=== PATIENT | male | born 1970 | race Caucasian/White ===

== ENCOUNTER 2024-09-22 08:21 | Day surgery (SDC) | payer MEDICARE, OTHER, MEDICAID, SELFPAY ==
[2024-09-22] VITALS (10 sets, daily range): BP systolic 120–151; BP diastolic 80–95; BMI 21.8
--- NOTE | 2024-09-22 08:11 | W.ICD.CONTRA ---
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
-
History of [place]?: No
LV Function
Left ventricular function study result?: Ejection Fraction >/= 40%
ACEI/ARB/ARNI
Patient already on ACEI/ARB/ARNI: No
Beta-Dina
Patient already on Beta Dina: No
[2024-09-22 09:09] LABS: Hematocrit 40.2 % (39.0-52.0); Hemoglobin 13.3 g/dL (13.0-18.0); Mean Corp Hgb Conc. 33.1 g/dL (33.0-37.0); Mean Corpuscular Hgb 34.6 pg (27.0-31.0); Mean Corpuscular Volume 104.7 fL (80.0-94.0); Mean Platelet Volume 9.3 fL (7.4-10.4); Platelet Count 229 10^3/uL (130-400); Red Blood Cell Count 3.84 10^6/uL (4.70-6.10); Red Cell Dist. Width 13.4 % (11.5-14.5)
[2024-09-22 09:27] LABS: ALT (SGPT) 20 U/L (0-50); AST (SGOT) 24 U/L (17-59); Albumin 4.1 g/dl (3.5-5.0); Alkaline Phosphatase 85 U/L (38-126); Blood Urea Nitrogen 23 mg/dl (9-20); Calcium 8.9 mg/dl (8.4-10.2); Carbon Dioxide 31 mmol/L (22-30); Chloride 100 mmol/L (98-107); Estimated Creatinine Clearance 73 ml/min; Glucose 89 mg/dl (70-99); Potassium 3.9 mmol/L (3.5-5.1); Sodium 141 mmol/L (135-145); Total Bilirubin 0.4 mg/dl (0.2-1.3); Total Protein 7.6 g/dl (6.3-8.2); eGFR > 60.00
[2024-09-22] MEDS: VANCOCIN 200 IV (10:18)
[2024-09-22] MEDS: NSS 500 IV (10:20)
--- NOTE | 2024-09-22 10:38 | ITS.CL.ICD ---
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
Implantable Cardioverter Defibrillator
Procedure Report:
ICD GENERATOR CHANGE REPORT
Date of Procedure: September 22 2024
Primary Care Provider: Dr Betty Coates
His mother who is power of ip attorney and provides informed consent today.
PROCEDURES:
1. Removal of ICD Generator, 2. ICD Implant
HISTORY:
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 He has a history of long QT syndrome as well as complete heart block and underwent Medtronic ICD implantation at an outside institution in 2016. He has received
appropriate shock for polymorphic VT.
Indication for ICD generator change therefore includes secondary prevention of sudden cardiac as well as need for pacing given complete heart block.
ICD at battery depletion/replacement indices
Life expectancy > 1 year
Echocardiogram dated September 26, 2021 demonstrated normal left ventricular size and function. There is paradoxical septal wall motion. No clear VSD or shunt is seen. Estimated ejection fraction is 55-60%
'Time-out' was called and confirmed. The patient was prepped and draped in sterile fashion. Lidocaine with epi was used for local anesthesia. An incision was made along the previous incision and the device and leads were carefully dissected from
the pocket. Hemostasis was obtained with electrocautery. The leads were from the device header and tested using an external analyzer. The pocket was liberally irrigated with antibiotic solution. Once testing (see below) showed adequate
and stable function, the leads were connected to the generator header and the leads and generator were placed within the pocket. The pocket was closed in the typical fashion.
Antibiotic pouch placed.
EXISTING ICD Medtronic [id number] Evera XT Serial Number: [id number]
IMPLANTED ICD: MEDTRONIC [id number], SN [id number]
EXISTING LEADS:
RA Medtronic 5076 CapSureFix Novus MRI SureScan [id number] Implanted 05/25/2016
RV Medtronic 6935 Sprint Quattro Secure S [id number] Implanted 05/25/2016
DEVICE TESTING:
Sensing: RA 2 mV, RV N/A mV (complete heart block with no escape)
Capture: RA 2 V@ 0.4 ms, RV 1.25 V@ 0.4 ms
Ohms: RA 418, RV 380
FINAL PROGRAMMING:
Aaron Pacing: DDD 60-130 ppm
Tachy parameters:
VF: 193 bpm, ATP while charging, Shock
CONCLUSIONS:
1. Explant of ICD at [employer] [employer]
2. Successful implant ICD generator.
3. Normal function of ICD and leads at implant testing.
RECOMMENDATIONS:
1. Observation and consideration for discharge home later today.
2. In-Office wound check in 7 - 10 days.
Copy to:
Dr Betty Coates
== END 2024-09-22 12:55 | disposition home or self-care (01) ==
LOC: CATH 08:21
PROVIDERS: ATTENDING PHYSICIAN Internal Medicine Cardiovascular Disease; FAMILY PHYSICIAN Family Medicine
DX: Z45.02 Encounter for adjustment and management of automatic implantable cardiac defibrillator (principal); Q90.9 Down syndrome, unspecified; Z98.890 Other specified postprocedural states; Z86.74 Personal history of sudden cardiac arrest; I44.2 Atrioventricular block, complete; I47.29 Other ventricular tachycardia; Z88.0 Allergy status to penicillin; Z88.5 Allergy status to narcotic agent; Z88.2 Allergy status to sulfonamides; Z88.1 Allergy status to other antibiotic agents
CPT/HCPCS: 33263; 80053; 85027; C1721